=== PATIENT | female | born 1995 | race Caucasian/White ===

== ENCOUNTER 2017-10-06 22:03 | Emergency (ER) | payer BC, OTHER ==
[~2017-10-06] VITALS: Ht 167.6 cm; Wt 85.7 kg
[~2017-10-06 22:03] MED LIST: CLOT1TC TOP; INSULANPEN; METF500 PO; OXYACE5T PO; Prilosec10 M1 PO; RANI150 PO
[2017-10-06] MEDS ORDERED: JARDIANCE25 MG PO (22:37)
[2017-10-06] MEDS ORDERED: DULO60 PO (22:37)
[2017-10-06] MEDS ORDERED: CYCL10 PO (22:37)
[2017-10-06 23:06] LABS: Source, Urine Clean Catch
[2017-10-06 23:10] LABS: Bilirubin, Urine Neg (Neg); Blood, Urine 2+ (Neg); Glucose Qualitative, Urine 4+ (Neg); Ketones, Urine Neg (Neg); Leukocyte Esterase, Urine Neg (Neg); Nitrite, Urine Neg (Neg); Protein, Urine Neg (Neg); Urobilinogen, Urine NORM (Normal)
[2017-10-06 23:12] LABS: Appearance, Urine Clear (Clear); Color, Urine Yellow (P-Yellow)
[2017-10-06 23:17] LABS: Bacteria Few /hpf; Red Blood Cells, Urine 0-2 /hpf (0-2); Squamous Epithelial Cells Few /hpf (Few)
[2017-10-06 23:21] LABS: U Amphetamine Screen Not Detected; U Barbituate Screen Not Detected; U Benzodiazapine Screen Not Detected; U Buprenorphine Screen Not Detected; U Cannabinoids Screen DETECTED; U Cocaine Screen Not Detected; U Methadone Screen Not Detected; U Methamphetamine Screen Not Detected; U Opiates Screen Not Detected; U Oxycodone Screen Not Detected; U Phencyclidine Screen Not Detected; U Propoxyphene Screen Not Detected
[2017-10-07 00:35] LABS: Calcium, Ionized (POC) 1.04 mmol/L (1.10-1.46); Chloride (POC) 101 mmol/L (98-108); Creatinine (POC) 0.4 mg/dL (0.6-1.0); Glucose (ISTAT POC) 190 mg/dL (70-99); Hemoglobin (POC) 11.9 g/dL (12.0-16.0); Potassium (POC) 5.2 mmol/L (3.5-5.5); Sodium (POC) 140 mmol/L (135-148); Total CO2 (POC) 29 mmol/L (21-32)
[2017-10-07] MEDS ORDERED: Zofran4 MG PO (01:10)
== END 2017-10-07 01:20 | disposition home or self-care (01) ==
LOC: ER 22:03
PROVIDERS: Emergency Medicine
DX: F12.929 Cannabis use, unspecified with intoxication, unspecified (principal); E86.0 Dehydration; R11.2 Nausea with vomiting, unspecified; E11.9 Type 2 diabetes mellitus without complications; Z91.048 Other nonmedicinal substance allergy status; Z91.018 Allergy to other foods; Z79.899 Other long term (current) drug therapy
CPT/HCPCS: 80047; 81001; 85014; 96361; 96374; 99283; J2550; J7120

== ENCOUNTER 2019-01-31 06:05 | Day surgery (SDC) | payer BC, OTHER ==
[~2019-01-31] VITALS: Ht 167.6 cm; Wt 89.2 kg
[~2019-01-31 06:05] MED LIST changes: +ALBU90OI; +CYCL10 PO; +DULO60 PO; +JARDIANCE25 MG PO; +META800; +TRULICITY0.75 MG/0.; +Zofran4 MG PO
[2019-01-31] MEDS ORDERED: Cymbalta30 MG (06:52)
--- NOTE | 2019-01-31 08:58 | NUR ---
01/31/19 0858 Isabel Denis LATE ENTRY FOR TODAY DURING PROCEDURE ATTEMPT TO PASS CHRISTIAN Shetty DR. UNABLE TO PASS DILATOR.
== END 2019-01-31 08:52 | disposition home or self-care (01) ==
LOC: ORSCSDS 06:05
PROVIDERS: Internal Medicine Gastroenterology
PROC: 0D757ZZ Dilation of Esophagus, Via Natural or Artificial Opening (ICD-10-PCS; principal; 2019-01-31 08:00)
PROC: 0DB68ZX Excision of Stomach, Via Natural or Artificial Opening Endoscopic, Diagnostic (ICD-10-PCS; principal; 2019-01-31 08:00)
PROC: 0DB58ZX Excision of Esophagus, Via Natural or Artificial Opening Endoscopic, Diagnostic (ICD-10-PCS; principal; 2019-01-31 08:00)
DX: R13.10 Dysphagia, unspecified (principal); K21.9 Gastro-esophageal reflux disease without esophagitis; E11.9 Type 2 diabetes mellitus without complications; J45.909 Unspecified asthma, uncomplicated; Z79.899 Other long term (current) drug therapy
CPT/HCPCS: 82947; 88305; J0461; J2250; J2405; J2704; J7120

== ENCOUNTER → 2019-12-24 | Outpatient (CLI) | payer BC, OTHER ==
[~2019-12-24] MED LIST changes: +Cymbalta30 MG
[2019-12-26 13:40] LABS: Stool Occult Blood Guaiac 1 Neg (Neg)
[2019-12-26 13:41] LABS: Stool Occult Blood Guaiac 2 Neg (Neg)
[2019-12-26 13:42] LABS: Stool Occult Blood Guaiac 3 Neg (Neg)
== END | disposition home or self-care (01) ==
LOC: LAB SHORT 09:51 → LAB 09:51 → LAB FUT 12-16 15:05
PROVIDERS: Internal Medicine
DX: D50.9 Iron deficiency anemia, unspecified (principal)
CPT/HCPCS: 82272